=== PATIENT | male | born 1955 | race Caucasian/White ===

== ENCOUNTER 2020-08-20 10:17 | Outpatient (CLI) | payer MEDICARE, SELFPAY ==
[2020-08-20 11:09] LABS: Hemoglobin A1C 5.7 % (<5.7)
[2020-08-20 11:31] LABS: Prostate Specific Antigen 0.4 ng/mL (< OR = 4.0)
== END 2020-08-20 10:18 | disposition home or self-care (01) ==
LOC: ANHLAB 10:20
PROVIDERS: PCP Internal Medicine; Visit Provider Internal Medicine
DX: R73.01 Impaired fasting glucose (principal); Z12.5 Encounter for screening for malignant neoplasm of prostate
CPT/HCPCS: 36415; 83036; 84153; G0103

== ENCOUNTER 2024-02-01 08:27 | Day surgery (SDC) | payer MEDICARE, SELFPAY ==
[2024-01-05 11:26] VITALS: BMI 29.0
[2024-01-17 13:08] VITALS: BMI 28.6
[2024-02-01 09:33] VITALS: PULSE 83; RESP 18; TEMP 37.3; O2SAT 98; BMI 28.0
[2024-02-01] MEDS: LACTATED RINGERS 1,000 ML 150 ML IV CONT (09:55)
--- NOTE | 2024-02-01 10:30 | WPDANESEPPF ---
Anes - Initial Pre Proc Eval Procedure: Operation Date: 02/01/24 10:30 Proposed Procedures p Screening Colonoscopy - Ney Britt MD Date/Time: 02/01/24 10:30 Surgeon: Ney Britt MD Pre Op Diagnosis: Neoplasm Screening Patient Data Age: 68 Gender: M Height: 1.78 m Weight: 88.5 kg Last Vital Signs Temp 37.3 C 02/01/24 09:33 Pulse 83 02/01/24 09:33 Resp 18 02/01/24 09:33 Pulse Ox 98 02/01/24 09:33 O2 Del Method Room Air 02/01/24 09:33 Allergies Allergy/AdvReac Type Severity Reaction Status Date / Time No Known Allergies Allergy Verified 02/01/24 09:26 Home Medications Medication Instructions Recorded Confirmed Type cholecalciferol (vitamin D3) 50 50 mcg PO DAILY 02/09/21 02/01/24 History mcg (2,000 unit) capsule amlodipine 2.5 mg tablet See Rx Instructions .Route 08/15/23 02/01/24 Rx .COMPLEX #90 tabs hydrochlorothiazide 12.5 mg tablet See Rx Instructions .Route 08/15/23 02/01/24 Rx .COMPLEX #90 tabs losartan 100 mg tablet 100 mg PO DAILY #90 tabs 09/05/23 02/01/24 Rx rosuvastatin 10 mg tablet (Crestor) 10 mg PO DAILY #90 tabs 11/10/23 02/01/24 Rx Patient hx anesthesia problems: none Family hx anesthesia problems: none Results Review: All pre-operative results and documents have been reviewed as part of the pre-operative evaluation. [facility] Past Medical History Medical History (Updated 02/01/24 @ 10:30 by Jamil Lucas MD) Dyslipidemia Overweight (BMI 25.0-29.9) Family History Family History Mother Family history of malignant neoplasm of ovary Social History Social History (Updated 02/01/24 @ 10:30 by Jamil Lucas MD) Social History: 1-2 cigars a year Smoking status: Current some day smoker Tobacco type: cigars Second hand tobacco smoke exposure: Yes Additional smoking assessment comments: 1-2 cigars a year Alcohol intake: current Alcohol use details: Social Substance use: never Substance use type: does not use Lack of Transportation: No Lack of Food: Never True Current Housing: I Have Housing Concerned About Future Housing: No Difficulty Paying Gas/Electric Bills: No Difficulty Paying for Meds: No Currently Unemployed: No Education: High School Diploma/GED Difficulty w/ Childcare or Family Care: No Living arrangements: alone Spiritual care concerns: No Anes - Eval Final PreProcedure Day of Procedure 02/01/24 10:30 Patient weight: overweight Heart: regular rate and rhythm Lungs: clear to auscultation Airway: Mallampati scale class II Neurological: alert and oriented Last oral intake: >/= 8 hours ASA classification: II Emergent: no Anesthetic plan: proceed Anesthesia type and monitoring: general GIVS and standard monitoring Results Review: All pre-operative results and documents have been reviewed as part of the pre-operative evaluation. Informed Consent: The patient's anesthetic plan and its attendant risks and benefits were discussed with the patient/family/POA. Questions were solicited and answers provided to the satisfaction of the patient/family/POA.
--- NOTE | 2024-02-01 10:31 | PM.HPGS ---
History of Present Illness History of Present Illness Consent: Risks, benefits, and alternatives have been discussed and questions answered. Patient agrees to proceed with procedure. Chief complaint: Neoplasm Screening Narrative: Ming Prado is a 68 year old male presents for screening colonoscopy. Patient's previous colonoscopy 10 years ago was unremarkable. Patient reports that his current weight appetite and bowel movements are normal. He denies is abdominal pain. Patient has had no bleeding. Family history noncontributory. Review of Systems Review of Systems: All systems reviewed & are unremarkable except as noted in HPI and below PMFSH Past Medical History Medical History (Updated 02/01/24 @ 10:30 by Jamil Lucas MD) Dyslipidemia Overweight (BMI 25.0-29.9) Family History Family History Mother Family history of malignant neoplasm of ovary Social History Social History (Updated 02/01/24 @ 10:30 by Jamil Lucas MD) Social History: 1-2 cigars a year Smoking status: Current some day smoker Tobacco type: cigars Second hand tobacco smoke exposure: Yes Additional smoking assessment comments: 1-2 cigars a year Alcohol intake: current Alcohol use details: Social Substance use: never Substance use type: does not use Lack of Transportation: No Lack of Food: Never True Current Housing: I Have Housing Concerned About Future Housing: No Difficulty Paying Gas/Electric Bills: No Difficulty Paying for Meds: No Currently Unemployed: No Education: High School Diploma/GED Difficulty w/ Childcare or Family Care: No Living arrangements: alone Spiritual care concerns: No Meds Home Medications and Allergies Home Medications Medication Instructions Recorded Confirmed Type cholecalciferol (vitamin D3) 50 50 mcg PO DAILY 02/09/21 02/01/24 History mcg (2,000 unit) capsule amlodipine 2.5 mg tablet See Rx Instructions .Route 08/15/23 02/01/24 Rx .COMPLEX #90 tabs hydrochlorothiazide 12.5 mg tablet See Rx Instructions .Route 08/15/23 02/01/24 Rx .COMPLEX #90 tabs losartan 100 mg tablet 100 mg PO DAILY #90 tabs 09/05/23 02/01/24 Rx rosuvastatin 10 mg tablet (Crestor) 10 mg PO DAILY #90 tabs 04/25/24 07/17/24 Rx Allergies Allergy/AdvReac Type Severity Reaction Status Date / Time No Known Allergies Allergy Verified 02/01/24 09:26 Vital Signs Vital Signs - 24 hr 02/01/24 09:33 Temperature 99.1 F Pulse Rate 83 Respiratory Rate 18 Pulse Oximetry 98 Oxygen Delivery Room Air Exam Narrative: Physical exam reveals patient to be alert. Vital signs stable. HEENT exam is unremarkable. Patient is anicteric. Lungs are clear to auscultation and percussion. Heart is without murmur or extra sounds. Abdominal exam bowel sounds are present soft, with no organomegaly. Digital external rectal exam normal. Assessment and Plan Assessment and plan (1) Screening for colon cancer: Code(s): Z12.11 - Encounter for screening for malignant neoplasm of colon Status: Acute Assessment and Plan: Patient presents today for neoplasia screening colonoscopy. Further recommendations may be given after endoscopy.
--- NOTE | 2024-02-01 10:38 | WPDANESEPPF ---
Anes - Initial Pre Proc Eval Procedure: Operation Date: 02/01/24 10:30 Proposed Procedures p Screening Colonoscopy - Ney Britt MD Date/Time: 02/01/24 10:38 Surgeon: Ney Britt MD Pre Op Diagnosis: Neoplasm Screening Patient Data Age: 68 Gender: M Height: 1.78 m Weight: 88.5 kg Last Vital Signs Temp 37.3 C 02/01/24 09:33 Pulse 83 02/01/24 09:33 Resp 18 02/01/24 09:33 Pulse Ox 98 02/01/24 09:33 O2 Del Method Room Air 02/01/24 09:33 Allergies Allergy/AdvReac Type Severity Reaction Status Date / Time No Known Allergies Allergy Verified 02/01/24 09:26 Home Medications Medication Instructions Recorded Confirmed Type cholecalciferol (vitamin D3) 50 50 mcg PO DAILY 02/09/21 02/01/24 History mcg (2,000 unit) capsule amlodipine 2.5 mg tablet See Rx Instructions .Route 08/15/23 02/01/24 Rx .COMPLEX #90 tabs hydrochlorothiazide 12.5 mg tablet See Rx Instructions .Route 08/15/23 02/01/24 Rx .COMPLEX #90 tabs losartan 100 mg tablet 100 mg PO DAILY #90 tabs 09/05/23 02/01/24 Rx rosuvastatin 10 mg tablet (Crestor) 10 mg PO DAILY #90 tabs 11/10/23 02/01/24 Rx Patient hx anesthesia problems: none Family hx anesthesia problems: none Results Review: All pre-operative results and documents have been reviewed as part of the pre-operative evaluation. [facility] Past Medical History Medical History Dyslipidemia Overweight (BMI 25.0-29.9) Family History Family History Mother Family history of malignant neoplasm of ovary Social History Social History Social History: 1-2 cigars a year Smoking status: Current some day smoker Tobacco type: cigars Second hand tobacco smoke exposure: Yes Additional smoking assessment comments: 1-2 cigars a year Alcohol intake: current Alcohol use details: Social Substance use: never Substance use type: does not use Lack of Transportation: No Lack of Food: Never True Current Housing: I Have Housing Concerned About Future Housing: No Difficulty Paying Gas/Electric Bills: No Difficulty Paying for Meds: No Currently Unemployed: No Education: High School Diploma/GED Difficulty w/ Childcare or Family Care: No Living arrangements: alone Spiritual care concerns: No Anes - Eval Final PreProcedure Day of Procedure 02/01/24 10:38 Patient weight: overweight Heart: regular rate and rhythm Lungs: clear to auscultation Airway: Mallampati scale class II Neurological: alert and oriented Last oral intake: >/= 8 hours ASA classification: II Emergent: no Anesthetic plan: proceed Anesthesia type and monitoring: general GIVS and standard monitoring Results Review: All pre-operative results and documents have been reviewed as part of the pre-operative evaluation. Informed Consent: The patient's anesthetic plan and its attendant risks and benefits were discussed with the patient/family/POA. Questions were solicited and answers provided to the satisfaction of the patient/family/POA.
[2024-02-01 11:12] VITALS: BP 113/56; PULSE 66; RESP 16; O2SAT 95
[2024-02-01 11:22] VITALS: BP 114/59; PULSE 63; RESP 16; O2SAT 98
--- NOTE | 2024-02-01 11:24 | SUR.PHASEII ---
1112; PT ARRIVED INTO [place] WITH JUDTIH KNITTING TEACHER. PT SLIGHTLY DIAPHORETIC. VSS. JUDITH KNITTING TEACHER STATES PT HAD A BACK SPASM WHILE TURNING ONTO LT SIDE IN ENDOSCOPY PRIOR TO PROCEDURE. 1115; PT NO LONGER DIAPHORETIC.
[2024-02-01 11:32] VITALS: BP 126/69; PULSE 62; RESP 16; O2SAT 98
--- NOTE | 2024-02-01 11:41 | WPDANESPN ---
Anes - Prog Note Post-Op Date/Time: 02/01/24 11:41 Cardiovascular status: normal Respiratory status: normal Airway patency: baseline Mental status: baseline Post-Op hydration status: normal Vital Signs: Last Vital Signs Temp 37.3 C 02/01/24 09:33 Pulse 62 02/01/24 11:32 Resp 16 02/01/24 11:32 BP 126/69 02/01/24 11:32 Pulse Ox 98 02/01/24 11:32 O2 Del Method Room Air 02/01/24 11:32 Pain Score (VAS): 0/10 I/O: Intake & Output 01/31/24 02/01/24 02/01/24 23:59 07:59 15:59 Intake Total 450 Balance 450 Patient Feedback: Patient satisfied with anesthetic care.
== END 2024-02-01 11:46 | disposition home or self-care (01) ==
PROVIDERS: PCP Nurse Practitioner; Visit Provider Internal Medicine Gastroenterology
PROC: 0DJD8ZZ Inspection of Lower Intestinal Tract, Via Natural or Artificial Opening Endoscopic (ICD-10-PCS; CPT 45378; principal; 2024-02-01 10:30)
DX: Z12.11 Encounter for screening for malignant neoplasm of colon (principal); K64.8 Other hemorrhoids
CPT/HCPCS: G0121